=== PATIENT | female | born 1990 | race Caucasian/White ===

== ENCOUNTER 2017-01-22 18:00 | Inpatient (IN) | payer OTHER ==
[~2017-01-22] VITALS: Ht 165.1 cm; Wt 112.5 kg
[2017-01-22] MEDS ORDERED: Lactated Ringer's 1,000 ML IV PRN (20:31)
[2017-01-22] MEDS ORDERED: Hemorrhage Kit, Post Partum XX ONE (20:35)
[2017-01-22] MEDS ORDERED: Oxytocin 10 Unit/mL Inj IM PRN (20:35)
[2017-01-22] MEDS ORDERED: Sodium Chloride LOK Flush 10 mL Syringe IVFLUSH PRN (20:35)
[2017-01-22] MEDS ORDERED: Carboprost 250 mCg/mL Inj IM PRN (20:35)
[2017-01-22] MEDS ORDERED: Methylergonovine 0.2 mg/mL Inj IM PRN (20:35)
[2017-01-22] MEDS ORDERED: Oxytocin 30 Units/500 mL LR 30 UNITS in IV Premix 1 EACH IV PRN (20:35)
[2017-01-22] MEDS ORDERED: Penicillin G K Inj 5,000,000 UNITS in Dextrose 5% Minibag Plus 100 ML IV ONE (20:35)
--- NOTE | 2017-01-22 21:11 | HP ---
[address] [address] HISTORY AND PHYSICAL PATIENT: MARK URIBE : 1990 MR#: [id number] ADMIT: 01/22/2017 JOB ID: [id number] ADMITTING DIAGNOSIS: Post-term at 42 weeks for induction of labor. HISTORY OF PRESENT ILLNESS: The patient is a 27-year-old 4, para 3, with a history of two spontaneous vaginal deliveries, the last one with twins, and history of two prior spontaneous abortions in the first trimester, comes to labor and delivery to rule out labor. The patient's estimated due date was January 08, 2017. Her care was received at [facility], the care was inconsistent. The last time she has been seen by the provider on December 02, 2016, at 35 weeks. The patient has been complaining of contractions. She has been placed on the monitors and was found to have irregular contractions every 20 minutes. The initial heart rate tracing was nonreactive with mild to moderate variability, baseline 120 beats per minute, subsequently, became reactive with moderate variability. She had a few occasional mild variable decelerations. PAST MEDICAL HISTORY: Migraine headaches and asthma. ALLERGIES: NKDA. OBSTETRICAL HISTORY: As mentioned above. The patient had a history of placental abruption with current at 14 weeks that resolved. SOCIAL HISTORY: She is an ex-smoker, quit smoking during current . FAMILY HISTORY: Diabetes type 2 in her father. LABORATORIES: That are available were reviewed. She is blood group and type AB positive, group B strep culture is unknown, rubella status is unknown. PHYSICAL EXAMINATION: Vital signs: Blood pressure 125/71, pulse 105, respiratory rate 18, temperature 36.7. HEENT: PERRLA. Chest: Lungs clear bilaterally. Good respiratory effort. Cardiovascular: Regular rate and rhythm. Abdomen: Gravid. Nondistended and nontender. Extremities: No pitting edema. FORMING PROCESS LINE WORKER exam: Intact membranes. No spotting. No abnormal discharge. Cephalic presentation. The cervix is 4 cm dilated, 50% effaced, station -3. ASSESSMENT AND PLAN: The patient is a 27-year-old 4, para 3, presents at 42 weeks to rule out labor. Insufficient care. The patient was examined, the cervix is favorable. She had two prior spontaneous vaginal deliveries, the first one was sotelo , the second one was twins. records were obtained, her care was limited, the last time she has been seen by the provider more than six weeks ago. The patient is being admitted for induction of labor for post-dates, post-term . IV hydration will be started with Lactated Ringer's at 125 mL/h. Penicillin will be provided for unknown group B strep status. Induction of labor was discussed with the patient. Informed consent was obtained. Oxytocin will be started at 2 milliunits per minute with increase by 2 milliunits per minute every 30 minutes. We will anticipate spontaneous vaginal delivery.
[2017-01-22 22:03] LABS: Mean Corpuscular Hemoglobin 29.8 pg (27.0-35.0); Mean Corpuscular Volume 91.1 fL (81-100)
[2017-01-23] MEDS ORDERED: Penicillin G K Inj 3,000,000 UNITS in IV Premix 1 EACH IV SCH (04:30)
[2017-01-23] MEDS: Lactated Ringer's 1,000 ML IV SCH ×2 (05:28→13:28)
[2017-01-23] MEDS ORDERED: Methylergonovine 0.2 mg/mL Inj IM PRN (05:30)
[2017-01-23] MEDS ORDERED: Benzocaine (Dermoplast) 20% 60 Gm Spray TOPICAL PRN (05:30)
[2017-01-23] MEDS ORDERED: Oxytocin 10 Unit/mL Inj IM PRN (05:30)
[2017-01-23] MEDS ORDERED: Witch Hazel-Glycerin Pads TOPICAL PRN (05:30)
[2017-01-23] MEDS ORDERED: Carboprost 250 mCg/mL Inj IM PRN (05:30)
[2017-01-23] MEDS ORDERED: oxyCODONE-Acetamin 5-325 mg Tablet PO PRN (05:30)
[2017-01-23] MEDS ORDERED: Hemorrhage Kit, Post Partum XX ONE (05:30)
[2017-01-23] MEDS ORDERED: Oxytocin 30 Units/500 mL LR 30 UNITS in IV Premix 1 EACH IV PRN (05:30)
[2017-01-23] MEDS ORDERED: LANOlin HPA 7 Gm Ointment TOPICAL PRN (05:30)
--- NOTE | 2017-01-23 09:10 | NUR ---
received SW referral. advised SHIPPING AND RECEIVING SPECIALIST.
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
--- NOTE | 2017-01-23 20:57 | OP ---
[address] [address] OPERATIVE REPORT PATIENT: MARK URIBE : 1990 MR#: [id number] ADMIT: 01/22/2017 JOB ID: [id number] DATE OF SURGERY: 01/23/2017 SURGEON: Jh Sanchez MD. PREOPERATIVE DIAGNOSIS(ES): A 27-year-old, 4, para 3, at 42 weeks. Induction of labor for post-dates . POSTOPERATIVE DIAGNOSIS(ES): A 27-year-old, 4, para 4, status post induction of labor and spontaneous vaginal delivery at 42 weeks and 1 day. The patient is a 27-year-old, 4, para 4 now who came to Labor and Delivery at 8:00, January 22, 2017, with no particular complaints, to be checked for possible early labor. The patient had care in [facility] that was limited. The last obstetrical visit was on December 02, 2016. By the records and 1st trimester ultrasound, the patient was 42 weeks at the time of arrival to and , and decision was made to proceed with induction of labor for post-dates . heart rate tracing was showing moderate variability with occasional variables that were mild. Baseline 120 beats per minute. Contractions were irregular every 20 minutes. Induction of labor with Pitocin was started. The patient's pelvic exam at admission showed cervix 4 cm dilated, 50% effaced, -3 station with intact membranes. She gradually progressed to full dilation at 5:00 in the morning. She had spontaneous rupture of membranes. She started pushing at around the same time and underwent spontaneous vaginal delivery at 5:16 a.m. The patient's GBS status was unknown and she received penicillin prior to delivery of the . Urine toxicology screen was sent and came back positive for benzodiazepines. The patient delivered a female with Apgars 9 at one minute and 9 at five minutes with 3896 g. Delayed cord clamping was provided, for 60 seconds. Placenta was delivered at 5:21 a.m. and was found to be intact with three-vessel cord. ESTIMATED BLOOD LOSS: 350 mL. The patient did not have any perineal lacerations. Pitocin was started shortly after delivery of the . It was uncomplicated induction of labor for post-term .
[2017-01-24 06:56] LABS: Mean Corpuscular Hemoglobin 29.9 pg (27.0-35.0)
[2017-01-24] MEDS ORDERED: DOCU-41 PO (07:12)
[2017-01-24] MEDS ORDERED: IBUP800T28 PO (07:12)
[2017-01-24] MEDS ORDERED: FERR-83 PO (07:12)
[2017-01-24] MEDS ORDERED: ASCO-294 PO (07:12)
--- NOTE | 2017-01-24 07:35 | PCM.DIMED ---
Discharge Instructions Date of Service Jan 24, 2017 Dates of Hospitalization Jan 22, 2017 at 20:16 Diet No restrictions Activity Limited until seen by PCP Call your provider Fever or Chills, Shortness of breath, Bleeding, Chest pain, Excessive diarrhea, Weakness (unilateral), Other (worsening swelling or pain in your legs) Patient Instructions Continue your vitamin. Please take the iron and vitamin c together for your anemia. Iron can give you constipation so you have also been given a prescription for docusate to keep you regular. Be sure to follow up in 6 weeks at [facility]. Pelvic rest for 6 weeks (nothing per vagina including intercourse, tampons) If you have a fever greater than 100.4, please call [facility]. There is always someone paving stone installer to talk to. If you have an increase in bleeding, call [facility]. If you have a lot of bleeding suddenly, especially if you have symptoms of dizziness & weakness with it, get emergency help. If you start experiencing extreme depression, especially if you feel that you are a danger to yourself or your family, seek emergency help. You have been through a lot -- BE SURE TO TAKE CARE OF YOURSELF. You have been sent home with the following prescriptions: - Colace 100 mg twice a day as needed for constipation. - Ferrous sulfate 325 mg every day. - Vitamin C 500 mg every day. Take with iron. - Ibuprofen 800mg take 1 tab every 8 hours as needed for pain. Take with a meal. Follow-up in 6 weeks with [facility]. Follow-up Provider: [facility] Follow-up with PCP in: 6 weeks Jessica Collazo DO Jan 24, 2017 07:35
[2017-01-24] MEDS: Lactated Ringer's 1,000 ML IV SCH ×2 (08:14→13:28)
[2017-01-24 09:37] VITALS: BP 93/51; PULSE 69; RESP 16
--- NOTE | 2017-01-25 19:29 | PCM.DC.OB ---
Obstetrical Discharge Summary Date of Service Jan 25, 2017 Date of hospital admission Jan 22, 2017 at 20:16 Date of Discharge: Jan 24, 2017 Providers Admitting Physician: Jh Sanchez MD Primary Care Physician: Prashanth Attending Physician: Jh Sanchez MD Diagnosis at Time of Discharge 1. 27-year-old 4, para 3 now 4, presented at 42 weeks s/p spontaneous vaginal delivery after induction of labor for post-term 2. Positive urine benzodiazepines screen Problems: Invasive procedures Vaginal delivery Date of Procedure: Jan 23, 2017 Brief History and Physical: From the history and physical performed on 01/23/17: The patient is a 27-year-old 4, para 3, with a history of two spontaneous vaginal deliveries, the last one with twins, and history of two prior spontaneous abortions in the first trimester, comes to labor and delivery to rule out labor. The patient's estimated due date was January 08, 2017. Her care was received at [facility], the care was inconsistent. The last time she has been seen by the provider on December 02, 2016, at 35 weeks. The patient has been complaining of contractions. She has been placed on the monitors and was found to have irregular contractions every 20 minutes. The initial heart rate tracing was nonreactive with mild to moderate variability, baseline 120 beats per minute, subsequently, became reactive with moderate variability. She had a few occasional mild variable decelerations. Hospital Course: 1. 27-year-old 4, para 3 now 4, presented at 42 weeks s/p spontaneous vaginal delivery after induction of labor for post-term -Delivered a female with Apgars 9 at one minute and 9 at five minutes with 3896 g on 01/23/17 -No perineal lacerations 2. Positive urine benzodiazepines screen Ascorbate Calcium (Vitamin C) 500 Mg Tablet 500 MG PO DAILY Prescribed by: DORINDA LEDBETTER DO Docusate Sodium (Colace) 100 Mg Capsule 100 MG PO BID PRN PRN For Constipation Prescribed by: DORINDA LEDBETTER DO Ferrous Sulfate (Ferrous Sulfate) 325 Mg Tablet 325 MG PO DAILY Prescribed by: DORINDA LEDBETTER DO Ibuprofen (Ibuprofen) 800 Mg Tablet 800 MG PO TID PRN PRN For Pain Prescribed by: DORINDA LEDBETTER DO Patient instructions Continue your vitamin. Please take the iron and vitamin c together for your anemia. Iron can give you constipation so you have also been given a prescription for docusate to keep you regular. Be sure to follow up in 6 weeks at [facility]. Pelvic rest for 6 weeks (nothing per vagina including intercourse, tampons) If you have a fever greater than 100.4, please call [facility]. There is always someone credit control manager to talk to. If you have an increase in bleeding, call [facility]. If you have a lot of bleeding suddenly, especially if you have symptoms of dizziness & weakness with it, get emergency help. If you start experiencing extreme depression, especially if you feel that you are a danger to yourself or your family, seek emergency help. You have been through a lot -- BE SURE TO TAKE CARE OF YOURSELF. You have been sent home with the following prescriptions: - Colace 100 mg twice a day as needed for constipation. - Ferrous sulfate 325 mg every day. - Vitamin C 500 mg every day. Take with iron. - Ibuprofen 800mg take 1 tab every 8 hours as needed for pain. Take with a meal. [facility] with [facility]. copies to: Jh Sanchez MD, Marissa L DO Jan 25, 2017 19:28
--- NOTE | 2017-01-27 18:30 | NUR ---
[facility] center: Social work note D/A: Baby discharged from hospital on 01/24 however cord stat has returned with positive drug screen for hydrocodone, marijuana and benzodiazepines. MOB only reported benzodiazepine use while admitted after initially denying this. Commissioning Editor attempted to fax records to baby's outpatient demand planner, however MOB has not followed up. TILE DITCHER attempted to follow up with MOB but MOB did not answer her phone. Due to inconsistent narrative of her drug use, lack of follow up and previous history of CPS involvement in [place] CPS report has been made to Ca Huffman at CPS intake. P: CPS report made due to new concerns for drug use and lack of outpatient follow up. Regan Lim
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
== END 2017-01-24 16:35 | disposition home or self-care (01) | DRG 775 ==
LOC: FBCO 18:00 → FBC 20:16
PROVIDERS: ADMIT Legal Medicine; ATTEND Legal Medicine
PROC: 3E033VJ Introduction of Other Hormone into Peripheral Vein, Percutaneous Approach (ICD-10-PCS; 2017-01-22)
PROC: 10E0XZZ Delivery of Products of Conception, External Approach (ICD-10-PCS; principal; 2017-01-23)
DX: O48.0 Post-term pregnancy (principal); Z87.891 Personal history of nicotine dependence; Z3A.42 42 weeks gestation of pregnancy; Z37.0 Single live birth

== ENCOUNTER → 2017-07-04 | Day surgery (SDC) | payer OTHER ==
[2017-07-04] VITALS (8 sets, daily range): BP systolic 91–125; BP diastolic 51–75; PULSE 53–71; RESP 14–28; O2SAT 94–100
[~2017-07-04] VITALS: Ht 165.1 cm; Wt 98.3 kg
[~2017-07-04] MED LIST: Acetaminophen IV 1,000 MG in IV Premix 1 EACH IV ONE; Bupivacaine-MPF 0.5% 30 mL Inj INFILTRATE ONE; Dexamethasone 4 mg/mL Inj IVPUSH PRN; Dexamethasone 4 mg/mL Inj ONE; EPHEDrine Sulfate 50 mg/mL Inj IVPUSH PRN; Esmolol 10,000 mCg/mL 10 mL Inj ONE; HYDROmorphone 1 mg/mL Inj IVPUSH PRN; Lactated Ringer's 1,000 ML IV SCH; Lactated Ringer's 500 ML IV PRN; MeTOProlol 1 mg/mL 5 mL Inj ONE; MetoCLOpramide 5 mg/mL 2 mL Inj IVPUSH PRN; Ondansetron 2 mg/mL 2 mL Inj IVPUSH PRN; Ondansetron 2 mg/mL 2 mL Inj ONE; Phenylephrine 10,000 mCg/mL Inj IVPUSH PRN; Propofol 10,000 mCg/mL 20 mL Inj ONE; diphenhydrAMINE 25 mg Capsule PO PRN; fentaNYL-PF 50 mCg/mL 2 mL Inj IVPUSH PRN; fentaNYL-PF 50 mCg/mL 2 mL Inj ONE; oxyCODONE-Acetamin 5-325 mg Tablet PO PRN
[2017-07-04] MEDS: Lactated Ringer's 1,000 ML IV SCH ×3 (09:39→14:20)
--- NOTE | 2017-07-04 13:43 | PCM.DIMED ---
Discharge Instructions Date of Service Jul 04, 2017 Dates of Hospitalization Diet Discharge Diet: No restrictions Activity Discharge Activity: No restrictions Call your provider Call your provider for: Fever or Chills, Shortness of breath, Bleeding, Chest pain, Vomitting, Excessive diarrhea, Weakness (unilateral) Patient Instructions Follow-up with PCP in: 2 weeks Jh Sanchez MD Jul 04, 2017 13:43
--- NOTE | 2017-07-04 13:55 | OP ---
[address] [address] OPERATIVE REPORT PATIENT: MARK URIBE : 1990 MR#: [id number] ADMIT: 07/04/2017 JOB ID: [id number] DATE OF SURGERY: 07/04/2017 PROCEDURE: Laparoscopic bilateral tubal ligation. PREOPERATIVE DIAGNOSIS(ES): Sterilization. POSTOPERATIVE DIAGNOSIS(ES): Sterilization. SURGEON: Jh Sanchez MD. ANESTHESIA: General. ESTIMATED BLOOD LOSS: 5 mL. ESTIMATED URINE OUTPUT: 100 mL. FLUIDS: 800 mL of lactated Ringer's. COMPLICATIONS: None. FINDINGS: Normal appearance of the vagina, cervix, uterus, ovaries and fallopian tubes. DESCRIPTION OF PROCEDURE: The patient was brought to the operating room, where general anesthesia was administered. She has been noted to have occasional premature ventricular contractions that were not severe. Precautions were taken. Time-out was performed, verifying correct patient and correct procedure. The patient was placed in a dorsal lithotomy position using Dougie stirrups. She was prepped and draped in usual surgical fashion. A OrderMyGear uterine manipulator was placed prior to the procedure and removed at the end of it. Attention was directed to the patient's abdomen, where the periumbilical area was anesthetized with local lidocaine. The Veress needle was introduced. CO2 gas was insufflated with appropriate pneumoperitoneum achieved. A 5 mm vertical skin incision was made with a scalpel and a 5 mm trocar was placed. Using a 30-degree scope, the pelvis and abdomen were reviewed with the findings mentioned above. The second incision 5 mm in size was made in the patient's left lower quadrant 5 cm medially and superiorly from the anterior superior iliac spine. A 5 mm trocar was placed through the incision. Using a LigaSure instrument, bilateral tubal ligation was performed. The uterus was elevated in the pelvis with a Hulka uterine manipulator. The patient's left fallopian tube was identified, grasped with the LigaSure instrument, coagulated in three different places 1 cm apart from each other and 3 cm from the cornua of the uterus and transected. The images were obtained. The same was done on the patient's contralateral side. A total of six images were obtained during the procedure. The instruments were removed. The trocars were removed after the abdomen was desufflated from the CO2 gas. Trocar skin incisions were reapproximated using 4-0 Monocryl. The Hulka uterine manipulator was removed. There was slight oozing at the insertion of the tenaculum that was controlled with application of silver nitrate sticks. The patient tolerated the procedure well and was transferred to the recovery room in stable condition.
--- NOTE | 2017-07-04 15:13 | PCM.HPANE ---
Patient Data Date of Service: Jul 04, 2017 Surgeon Admitting Provider: Attending Provider:Jh Sanchez MD Primary Care Physician:Prashanth Other Provider:Diana Keys Anesthesia Reason for Visit Desires Sterilization Ht/WT & BMI Height (Feet): 5 Height (Inches): 5 Weight (Kilograms): 98.3 Body Mass Index 36.00 Allergies Coded Allergies: No Known Allergies (Unverified , 01/22/17) Past Anesthesia History Anesthesia History: Positive for:: Abnormal Airway Diabetes History Hx Diabetes?: No MRSA MRSA: No Medications Hypertension Medication: No Home Meds Incl Beta Shane: No Discontinued Scripts Ascorbate Calcium (Vitamin C)500 Mg [id number] Mg PO DAILY #90 TABLET Prov:Jessica Collazo DO 01/24/17 Ferrous Sulfate 325 Mg [id number] Mg PO DAILY #90 TABLET Ref 0 Prov:Jessica Collazo DO 01/24/17 Docusate Sodium (Colace)100 Mg [id number] Mg PO BID PRN For Constipation #60 CAPSULE Ref 0 Prov:Jessica Collazo DO 01/24/17 Ibuprofen 800 Mg [id number] Mg PO TID PRN For Pain #60 TABLET Ref 0 Prov:Jessica Collazo DO 01/24/17 History History of ENT Problems?: No HEENT History: Denies:: Abnormal Airway Denture Type: None Teeth Condition: Tooth Decay Missing Teeth Hx of Heart Problems?: No Cardiovascular History: Denies:: Cardiac Surgery Other History/Comments METS>4. Denies chest pain. Condones 1 episode of dizziness months ago. Denies syncompe. Denies hx of family heart disease or sudden (mother did of brain aneurysm at 42). Hx of Respiratory Problem?: Yes Respiratory History: Positive for:: Asthma Hx Neurologic Problems?: No Hx of GI Problems?: No Hx of Problems?: No Female Hx: Denies:: Currently (NEG PREG TEST) Problems with Breasts? Hx Musculoskeletal Problems?: No Hx Surgeries?: No Hx Any Other Health Problems?: No Other History: Denies:: Cancer Hx Diabetes: No Stop/Bang S-Snoring: Do You Snore Loudly: No T-Tired: feel tired, fatigued: Yes O-Obsered: Observed not breath: No P-Blood Pressure: treated: No B- Body Mass Index > 35 kg/m2: No A- Age over 50: No N- Neck Large Circumference: No G- Gender Male: No JAYLIN Total Score: 1 JAYLIN Risk Assessment: Low Risk, <3 Yes Risk Assessment Category Category 1A: Patient has history of documented sleep apnea, and HAS NOT received any narcotic, sedative or anesthesia administration during this stay. Category 1B: Patient has history of documented sleep apnea, and HAS received any narcotic , sedative or anesthesia administration during this stay Category 2: Patient has SUSPECTED Obstructive Sleep Apnea, and HAS received any narcotic , sedative or anesthesia administration during this stay. Category 3: Patient has SUSPECTED Obstructive Sleep Apnea and HAS NOT received narcotic, sedative or anesthesia administration during this stay. Category 4: Outpatient in Procedural Areas with known sleep apnea or who screen positive for High Risk via the STOP/BANG questionnaire. Exam Exam Vital Signs Vital Signs Date Time Temp Pulse Resp B/P Pulse Ox O2 Delivery O2 Flow Rate FiO2 07/04/17 14:44 36.7 59 16 111/70 99 Room Air 07/04/17 14:20 57 14 103/70 98 Room Air 07/04/17 14:02 36.5 53 14 109/51 100 Nasal Cannula 3 07/04/17 13:55 62 20 91/68 100 Nasal Cannula 3 07/04/17 13:50 69 27 115/64 100 Nasal Cannula 3 07/04/17 13:45 64 28 125/75 94 Room Air 07/04/17 13:41 36.1 68 28 118/75 99 Simple Mask 8 07/04/17 09:32 35.9 71 16 108/64 96 Room Air General Appearance: Alert, Oriented X3 HEENT/AIRWAY: MP 1 Lungs: Clear to Auscultation Heart: Exam Unremarkable, Normal S1, Normal S2, No Murmurs/Rubs/Gallops Meds/Labs/Diagnostics Admission Meds Current Medications Lactated Ringer's (Lr) 1,000 ml @ 120 mls/hr Q8H20M IV Last administered on 14:20; Start 07/04/17 at 05:00; Stop 07/04/17 at 13:30; Status DC Bupivacaine HCl (Sensorcaine-MPF 0.5% Inj) 30 ml STK-MED ONCE INFILTRATE Last administered on 07/04/17 12:57; Start 07/04/17 at 12:57; Stop 07/04/17 at 12:59 ; Status DC Labs Test 07/04/17 13:00 Sodium Level 139mEq/L (134-144) Potassium Level 4.1mEq/L (3.5-5.2) Chloride Level 105mEq/L (97-108) Carbon Dioxide Level 22mmol/L (18-29) Blood Urea Nitrogen 14mg/dL (6-20) Creatinine 0.74mg/dL (0.57-1.00) Estimat Glomerular Filtration Rate 135mL/min (>59) Glucose Level 100mg/dL (60-99) Calcium Level 8.5mg/dL (8.5-10.1) Magnesium Level 2.0mg/dL (1.6-2.6) Plan Impression Patient chart reviewed, patient interviewed and anesthestic plan with risks, benefits, and alternatives discussed, and informed consent obtained. NPO per Anesth. Guidelines: Yes ASA Physical Status: ASA2 Mod Systemic Disease Anesthetic Plan: GA Bene/Risks/Altern/Consents: Yes HP Complete Prior to Induction: Yes Duncan Garcia MD Jul 04, 2017 15:13
--- NOTE | 2017-07-04 15:15 | PCM.ANEP1 ---
Post Anesthesia PACU Phase 1 Assessment Vital Signs Vital Signs Date Time Temp Pulse Resp B/P Pulse Ox O2 Delivery O2 Flow Rate FiO2 07/04/17 14:44 36.7 59 16 111/70 99 Room Air 07/04/17 14:20 57 14 103/70 98 Room Air 07/04/17 14:02 36.5 53 14 109/51 100 Nasal Cannula 3 07/04/17 13:55 62 20 91/68 100 Nasal Cannula 3 07/04/17 13:50 69 27 115/64 100 Nasal Cannula 3 07/04/17 13:45 64 28 125/75 94 Room Air 07/04/17 13:41 36.1 68 28 118/75 99 Simple Mask 8 07/04/17 09:32 35.9 71 16 108/64 96 Room Air Anesthetic Administered: GA Level of Alertness: Awake, talking Pain: No Nausea or Vomiting: No CV Function & Hydration Stable: Yes Airway Device: Oxygen Delivery: Room Air Lungs: Clear to Auscultation PACU Phase 2 Assessment Complications: No Follow up Care: Yes Patient Instructions Provided: Yes Comments Dr. Sanchez has accepted responsibility to contact pt's PCP to make aware of PVC in bigemony. I have discussed this with the patient. No signs of ischemia. Electrolytes are nomal. In the PACU I both saw NSR and PVCs, but the patient is asymptomatic. OK for D/C home. Duncan Garcia MD Jul 04, 2017 15:15
== END | disposition home or self-care (01) ==
LOC: SAS 09:08
PROVIDERS: ATTEND Legal Medicine
DX: Z30.2 Encounter for sterilization (principal); J45.909 Unspecified asthma, uncomplicated
CPT/HCPCS: 36415; 58670; 80048; 83735; J0131; J1100; J1170; J1885; J2175; J2250; J2405; J2704; J3010; J7120